=== PATIENT | male | born 1945 | race African-American/Black ===

== ENCOUNTER → 2019-01-07 | Outpatient (CLI) | payer OTHER ==
[~2019-01-07] MED LIST: GADOTERATE 10 MMOL/20 ML SYR ONE
== END | disposition home or self-care (01) ==
LOC: RAD 12:12
PROVIDERS: ATTEND Orthopaedic Surgery
DX: M51.37 Other intervertebral disc degeneration, lumbosacral region (principal); M48.07 Spinal stenosis, lumbosacral region; I51.89 Other ill-defined heart diseases; I42.1 Obstructive hypertrophic cardiomyopathy; Z98.890 Other specified postprocedural states
CPT/HCPCS: 72158; A9575

== ENCOUNTER 2019-04-20 08:50 | Outpatient (CLI) | payer OTHER ==
[2019-04-26] MEDS ORDERED: APIX5TAB PO (10:03)
[2019-04-26] MEDS ORDERED: BUDE10.2 INH (10:03)
[2019-04-26] MEDS ORDERED: PANT40TA5 PO (10:03)
[2019-04-26] MEDS ORDERED: ASPI-496 PO (10:03)
[2019-04-26] MEDS ORDERED: DOXA2TAB9 PO (10:03)
[2019-04-26] MEDS ORDERED: METO25TA35 PO (10:03)
[2019-04-26] MEDS ORDERED: atorvastatin PO (10:03)
[2019-04-26] MEDS ORDERED: HYDR12.517 PO (10:03)
[2019-04-26] MEDS ORDERED: losartan PO (10:03)
[2019-04-26] MEDS ORDERED: AMLO-150 PO (10:03)
[2019-04-26] MEDS ORDERED: ALLO100T30 PO (10:03)
== END 2019-04-20 23:59 | disposition home or self-care (01) ==
LOC: RAD 08:50
PROVIDERS: ATTEND Registered Nurse Registered Nurse First Assistant
DX: S33.140A Subluxation of L4/L5 lumbar vertebra, initial encounter (principal); M48.061 Spinal stenosis, lumbar region without neurogenic claudication; X58.XXXA Exposure to other specified factors, initial encounter; Y93.89 Activity, other specified; Y92.89 Other specified places as the place of occurrence of the external cause; Y99.8 Other external cause status
CPT/HCPCS: 72120